=== PATIENT | female | born 1995 | race Caucasian/White ===

== ENCOUNTER 2017-06-14 10:41 | Emergency (ER) | payer OTHER ==
[~2017-06-14] VITALS: Ht 162.6 cm; Wt 74.8 kg
[2017-06-14 10:45] VITALS: BP 116/61
== END 2017-06-14 11:16 | disposition home or self-care (01) ==
LOC: ER 10:43
DX: J11.1 Influenza due to unidentified influenza virus with other respiratory manifestations (principal)
CPT/HCPCS: 99283; A4606; Z7610